=== PATIENT | female | born 1995 | race Caucasian/White ===

== ENCOUNTER 2019-11-30 13:19 | Emergency (ER) | payer MEDICAID, OTHER ==
[~2019-11-30] VITALS: Ht 160 cm; Wt 79.4 kg
--- NOTE | 2019-11-30 13:25 | NUR ---
URINE SPECIMEN COLLECTED AND SENT TO LAB.
--- NOTE | 2019-11-30 13:30 | NUR ---
ER PHLEB AT BEDSIDE FOR EVAL.
--- NOTE | 2019-11-30 13:33 | NUR ---
PT REFUSED BLOOD DRAW .
[2019-11-30] MEDS: IV NS 0.9% 1,000 ML BAG IV ONE (14:06)
[2019-11-30] MEDS ORDERED: KETOROLAC TROMETHAMINE INJ 30 MG/ML VIAL ONE (14:21)
[2019-11-30] MEDS: KETOROLAC TROMETHAMINE INJ 30 MG/ML VIAL IV ONE (14:24)
--- NOTE | 2019-11-30 14:27 | NUR ---
BIBS TO ER BED 16. AAOX4. NOT IN RESP DISTRESS. AMBULATORY. CAME IN FOR FAINTING WHILE DOING BLOOD DRAW. PER PT, SHE FEELS WEAK, DIIZY AND FAINT WHEN EVER SHE GETS HEAVY MESTRUAL PERIOD. PT IS ALSO COMPLAINING OF LOWER ABDOMINAL CRAMPING 11/21. WAS AT [facility] BEDSIDE FOR EVAL. ORDERS RECEIVED NOTED AND CARRIED OUT. IV LINE OBTAINED ON L AC 20G. BLOO DRAWN. MEDICATED ORDERED. WILL CONTINUE TO MONITOR PT
[2019-11-30 14:54] LABS: BASOPHILS # (AUTO) 0.1 /CMM (0.0-0.2); BASOPHILS % (AUTO) 0.8 % (0.0-2.0); EOSINOPHILS % (AUTO) 0.9 % (0.0-6.0); HEMATOCRIT 41 % (33-45); HEMOGLOBIN 13.7 g/dL (11.5-14.8); LYMPHOCYTES % (AUTO) 20.2 % (20.0-44.0); MEAN CORPUSCULAR HGB CONC 34 g/dl (31.0-36.0); MEAN CORPUSCULAR VOLUME 87 fL (82-100); MONOCYTES # (AUTO) 0.7 /CMM (0.1-1.30); NEUTROPHILS # (AUTO) 7.2 /CMM (1.8-8.9); NEUTROPHILS % (AUTO) 71.1 % (43.0-81.0); PLATELET COUNT (AUTO) 267 /CMM (150-450); RED BLOOD CELL COUNT(AUTO) 4.66 MIL/uL (4.0-5.2); WHITE BLOOD COUNT (AUTO) 10.2 K/uL (4.3-11.0)
[2019-11-30 15:00] LABS: CALCIUM, SERUM 8.9 mg/dL (8.5-10.1); CREATININE 0.8 mg/dL (0.6-1.3); POTASSIUM 3.5 mmol/L (3.5-5.1)
--- NOTE | 2019-11-30 15:25 | NUR ---
IV removed. Catheter intact and site benign. Pressure and 4x4 applied to site. No bleeding noted. Patient discharged to home in stable condition. Written and verbal after care instructions given. Patient verbalizes understanding of instruction.
[2019-11-30 15:27] VITALS: BP 105/54
== END 2019-11-30 15:27 | disposition home or self-care (01) ==
LOC: ER 13:21
DX: R55 Syncope and collapse (principal); N92.0 Excessive and frequent menstruation with regular cycle; R42 Dizziness and giddiness; R11.0 Nausea; F41.9 Anxiety disorder, unspecified; F32.9 Major depressive disorder, single episode, unspecified
CPT/HCPCS: 36415; 80048; 84702; 84703; 85025; 93005; 96361; 96374; 99284; J1885; J7030